=== PATIENT | female | born 1950 | race Caucasian/White ===

== ENCOUNTER 2020-06-01 11:07 | Outpatient (CLI) | payer MEDICARE, OTHER | END 2020-06-01 11:08 | disposition home or self-care (01) | LOC: COV 11:07 | PROVIDERS: ATTEND Family Medicine | DX: Z20.828 Contact with and (suspected) exposure to other viral communicable diseases (principal) ==

== ENCOUNTER 2022-05-01 10:48 | Outpatient (CLI) | payer MEDICARE, OTHER ==
--- NOTE | 2022-05-11 12:52 | Mammography Report ---
BILATERAL DIGITAL SCREENING MAMMOGRAM 3D/2D: 05/01/2022 CLINICAL: Routine screening. Family history of breast cancer. No prior exams were available for comparison. Both breasts are almost entirely fatty (category a/<25% glandular tissue). There is a possible asymmetry with an obscured margin in the left breast at 1 o'clock middle depth. No other significant masses, calcifications, or other findings are seen in either breast. IMPRESSION: INCOMPLETE: NEEDS ADDITIONAL IMAGING EVALUATION The possible asymmetry in the left breast is indeterminate. Additional views with possible ultrasoun d are recommended. Based on the Tyrer Cuzick model (a risk assessment model) the patients lifetime risk is 5.3% and her 10 year risk is 3.4%. According to the ACR, ACS, and NCCN guidelines, an annual breast MRI exam lito g with mammogram is recommended if the patients lifetime risk is 20% or greater. This exam was interpreted at Station ID: [id number]. NOTE: For mammograms, a report in lay terms will be sent to the patient. Approximately 15% of breast malignancies will not be visualized mammographically. In the management of a palpable breast mass, a negative mammogram must not discourage biopsy of a clinically suspicious lesion. Electronically Signed By: Carlos Alberto Meraz M.D., jr/anuradha:05/10/2022 13:10:42 ACR BI-RADS Category 0: Incomplete 3340F PARENCHYMAL PATTERN: (F) - The breast(s) demonstrate(s) diffuse fatty replacement. BI-RADS CATEGORY: (0) - 0 Mammo and US [id number] Immediate follow-up LATERALITY: (B)
== END 2022-05-01 10:49 | disposition home or self-care (01) ==
LOC: DI.S 10:48
PROVIDERS: ATTEND Family Medicine
DX: Z12.31 Encounter for screening mammogram for malignant neoplasm of breast (principal); R92.8 Other abnormal and inconclusive findings on diagnostic imaging of breast; Z80.3 Family history of malignant neoplasm of breast

== ENCOUNTER 2023-09-06 13:24 | Outpatient (CLI) | payer MEDICARE, OTHER ==
--- NOTE | 2023-09-07 17:21 | XRAY Report ---
PROCEDURE: Thoracic Spine 2V INDICATIONS: THORACIC BACK PAIN TECHNIQUE: 2 views of the thoracic spine were acquired. COMPARISON: None. FINDINGS: Bones: No fractures or dislocations. No suspicious bony lesions. Moderate degenerative disc disease thoracic spine, most pronounced at T7-T8. Partial visualization of scoliosis in lumbar spine. 12 radhames rs of ribs are noted, and appear intact where visualized. Soft tissues: No paravertebral stripe thickening. IMPRESSION: 1. No acute bony abnormality. 2. Moderate degenerative disc disease. 3. Scoliosis in lumbar spine, partially visualized. Recommend lumbar spine radiographs. Reviewed by: Rogelio Mclaughlin MD on 09/07/2023 5:20 PM PST Approved by: Rogelio Mclaughlin MD on 09/07/2023 5:20 PM PST Station ID: [id number]
== END 2023-09-06 13:25 | disposition home or self-care (01) ==
LOC: DI.S 13:24
PROVIDERS: ATTEND Family Medicine
DX: Z85.42 Personal history of malignant neoplasm of other parts of uterus (principal); M51.34 Other intervertebral disc degeneration, thoracic region

== ENCOUNTER 2023-09-07 08:00 | Outpatient (CLI) | payer MEDICARE, OTHER ==
--- NOTE | 2023-09-07 12:25 | XRAY Report ---
PROCEDURE: Chest 1V INDICATIONS: ATYPICAL CHEST PAIN TECHNIQUE: One view of the chest was acquired. COMPARISON: None FINDINGS: Surgical changes and devices: None. Lungs and pleura: No pleural effusions or pneumothorax. Lungs are clear. Mediastinum: Mediastinal contours appear normal. Heart size is normal. Bones and chest wall: No suspicious bony lesions. Overlying soft tissues appear unremarkable. IMPRESSION: No acute cardiopulmonary process. Reviewed by: Carlyn Anthony MD on 09/07/2023 12:23 PM PST Approved by: Carlyn Anthony MD on 09/07/2023 12:23 PM PST Station ID: [id number]
== END 2023-09-07 23:59 | disposition home or self-care (01) ==
LOC: DI.S 08:00
PROVIDERS: ATTEND Registered Nurse
DX: R07.89 Other chest pain (principal)